=== PATIENT | female | born 1960 | race Caucasian/White ===

== ENCOUNTER → 2016-10-20 | Outpatient (CLI) | payer OTHER ==
[~2016-10-20] VITALS: Ht 149.9 cm; Wt 81.6 kg
[~2016-10-20] MED LIST: AMITRIPTYLINE H25 M2 PO; ASPIR 8181 M1 PO; BREO ELLIPTA 21 EACH IH; HYOSCYAMINE0.375 M1 PO; IBUPROFEN 200200 M1 PO; LYRICA 50 MG50 MG PO; NITROGLYCERIN0.4 MG SUBLING; NORCO 10-325 T1 EACH PO; ONDANSETRON HCL4 M2 PO; PANTOPRAZOLE SO40 M1 PO; PHENERGAN12.5 M2 PO; TRAMADOL 50 MG50 MG PO; VENTOLIN HFA 1818 GM INH; ZANAFLEX4 MG PO
--- NOTE | ~2016-10-20 | CATHLAB ---
Formerly [facility] [place] [place] [address] INVASIVE PROCEDURE REPORT Name: ELPIDIO SAUCEDA Room #: REG [facility]#: [id number] Admission: 10/20/16 Attend Phys: Addy Arguelles Discharge: Date of : 62 Date of Service: 10/20/16 1136 Report #: [id number] THIS REPORT FOR: //name// CC: Addy LONGORIA DATE OF SERVICE: 10/20/2016 PROCEDURES: 1. Left heart catheterization. 2. Left and right coronary angiography. 3. Measurement of left ventricular end diastolic pressures. 4. Supervision of conscious sedation. INDICATIONS: This is a 56-year-old female patient with significant risk factors and continued exertional chest discomfort suspicious for angina. DANCER OR CHOREOGRAPHER: Addy Cordon M.D. BRIEF DESCRIPTION OF PROCEDURE: After informed consent was obtained, the patient was brought to the cardiac catheterization laboratory in stable condition. The patient's right groin was prepped and draped in the usual sterile manner after which lidocaine was then instilled. Utilizing a modified Seldinger technique, the right femoral artery was then accessed. Under fluoroscopic visualization using selective coronary catheters, the right and left coronaries were opacified and visualized. The left ventriculogram was likewise imaged per standard protocol with EDP being measured. Subsequent to this, the sheath was removed, hemostasis achieved. The patient tolerated the procedure well. There were no complications. FINDINGS: 1. RHYTHM: The patient's rhythm was sinus rhythm throughout the entire procedure. 2. HEMODYNAMICS: a. Aortic pressure 122/82. b. Left ventricular end diastolic pressure is 22/25. 3. FLUOROSCOPY: Under fluoroscopic visualization, there was minimal calcific plaquing along the epicardial coronary arteries. No calcific plaquing on the valvular or intramyocardial structures of the heart. CORONARY ANGIOGRAPHY: This is a right coronary dominant system. A. Left main is of normal origin and caliber, bifurcates as left anterior descending and left circumflex and is free of high-grade disease. B. Left anterior descending is a moderate type 1 vessel which courses in the anterior interventricular sulcus, gives rise to an early diagonal and septal branch free of high-grade disease. It continues on and terminates in the distal [facility] [address] [place] [address] INVASIVE PROCEDURE REPORT Name: ELPIDIO SAUCEDA Room #: REG [facility] Perez#: [id number] Admission: 10/20/16 Attend Phys: Addy Arguelles Discharge: Date of : 62 Date of Service: 10/20/16 1136 Report #: [id number] third of the anterior wall free of high-grade flow-limiting lesions. C. Left circumflex is a moderate caliber nondominant vessel, proceeds giving rise to marginal branches, all of which are free of high-grade disease. D. Right coronary is a moderate to large caliber dominant vessel, courses in the AV groove. At the crux of the heart, it gives rise to a posterior descending artery, which tapers rapidly at the edge and appears to have regions of at least 75% diameter at the terminal portion as at the origin of the PDA. This may be a naturally tapering vessel, but diffuse distal disease cannot be excluded. The posterior wall circulation is free of high-grade disease as is the RCA proper. IMPRESSION: 1. Mild single-vessel nonobstructive coronary artery disease. 2. Normal hemodynamics. 3. In view of no obvious significant cardiac origin for symptoms, other etiologies need to be pursued. <ELECTRONICALLY SIGNED> By: Addy Cordon MD 10/24/16 1747 [id number] Addy Cordon MD /nt
[2016-10-20 09:35] LABS: HEMATOCRIT 42.7 % (37.0-47.0); MCH 32.2 pg (26.0-34.0); MCHC 35.1 g/dL (28.0-37.0); MCV 91.7 fL (80.0-100.0); RBC 4.66 mil/uL (4.20-5.00); RDW 14.6 % (10.5-14.5); WBC 6.2 thou/uL (4.0-11.0)
[2016-10-20 09:41] VITALS: BP 108/69
[2016-10-20 09:41] LABS: CALCIUM 9.1 mg/dL (8.5-10.1); CREATININE 0.8 mg/dL (0.6-1.0); POTASSIUM 4.1 mmol/L (3.5-5.1)
[2016-10-20 09:44] LABS: PROTIME 10.2 Seconds (9.3-11.4)
== END | disposition home or self-care (01) ==
LOC: CATH 08:41
PROVIDERS: Internal Medicine
DX: I25.10 Atherosclerotic heart disease of native coronary artery without angina pectoris (principal); I10 Essential (primary) hypertension; J44.9 Chronic obstructive pulmonary disease, unspecified; K21.9 Gastro-esophageal reflux disease without esophagitis; M81.0 Age-related osteoporosis without current pathological fracture; F17.210 Nicotine dependence, cigarettes, uncomplicated; Z90.49 Acquired absence of other specified parts of digestive tract; Z82.49 Family history of ischemic heart disease and other diseases of the circulatory system; Z98.890 Other specified postprocedural states